=== PATIENT | male | born 1990 ===

== ENCOUNTER 2016-04-15 13:40 | Emergency (ER) | payer OTHER ==
--- NOTE | 2016-04-21 16:06 | ER ---
ADMIT: 04/15/2016 RM/LOC: ER [facility] MR#: [id number] [facility] [id number] [place], [place] [id number] CROCKER JOSHUA BEEBE [address] [place] [address] [address] [place] [address] Emergency Room Report SEX: M AGE: 25 : 1990 DATE: 04/15/2016 Patient is a 25-year-old male with discomfort in the left upper chest, he states that started last night. 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 He had been treated in the past for hypertension. He takes lisinopril, has an albuterol inhaler for last time he was in the ER having some difficulty with reactive airway disease. He denies having a history of asthma. He feels like something pinching or poking in the upper chest. Upon examination, he does not have reproducible pain. His vitals; blood pressure 147/72 with a MAP of 90, pulse 78, respirations 18, temp is 98.3, and O2 sats 100%. No surgeries. No allergies. A shot of Toradol was given to him and it did improve a bit his pain. He has no medical history related to heart problems. He is not diaphoretic, no nausea. Blood pressure is within normal limits. He states that he is faithfully taking his blood pressure medication and he does not describe this pain as a pain that comes from after he eats as in the form of GERD. CLINICAL IMPRESSION: Chest wall pain. Toradol for home use and follow up with Dr. Hawley next week. MANJULA Smith / Bruno Salas MD / luz JOB #: [id number] CC: Bruno Salas MD, Attending Physician
== END 2016-04-15 15:20 | disposition home or self-care (01) ==
LOC: ER 13:40
DX: R07.89 Other chest pain (principal); I10 Essential (primary) hypertension; Z79.899 Other long term (current) drug therapy